=== PATIENT | female | born 1995 | race Caucasian/White ===

== ENCOUNTER → 2025-07-16 16:34 | Outpatient (REF) | payer OTHER, SELFPAY | LOC: RAD 16:34 | PROVIDERS: ATTENDING PHYSICIAN Obstetrics & Gynecology; FAMILY PHYSICIAN Family Medicine | DX: M79.661 Pain in right lower leg (principal) | CPT/HCPCS: 93971 ==

== ENCOUNTER 2025-08-25 19:31 | Observation (INO) | payer OTHER, SELFPAY ==
[2025-08-25 19:41] VITALS: BP 123/70; BMI 26.5
== END 2025-08-25 21:39 | disposition home or self-care (01) ==
LOC: LDRP 19:31
PROVIDERS: ADMITTING PHYSICIAN Obstetrics & Gynecology
DX: O32.1XX0 Maternal care for breech presentation, not applicable or unspecified (principal); Z3A.37 37 weeks gestation of pregnancy
CPT/HCPCS: 59899; G0378

== ENCOUNTER 2025-09-21 09:39 | Inpatient (IN) | payer OTHER, SELFPAY ==
[2025-09-21 09:44] VITALS: BP 123/74; BMI 26.8
[2025-09-21] MEDS: LR 1000 IV ×2 (11:30→18:39)
[2025-09-21 11:33] LABS: Hematocrit 34.8 % (37.0-47.0); Hemoglobin 12.1 g/dL (12.0-16.0); Mean Corp Hgb Conc. 34.8 g/dL (33.0-37.0); Mean Corpuscular Volume 91.8 fL (81.0-99.0); Nucleated Red Blood Cells % 0 %; Platelet Count 216 10^3/uL (130-400); Red Cell Dist. Width 13.6 % (11.5-14.5)
[2025-09-21] MEDS: PITOCIN 30 UNITS/NSS 500 ML IV (13:46)
[2025-09-21] MEDS: SUBLIMAZE 100 MCG EPIDURAL (20:55)
[2025-09-21] MEDS: FENTANYL/BUPIVACAINE 100 EPIDURAL (20:55)
[2025-09-22] MEDS: FENTANYL/BUPIVACAINE 100 EPIDURAL (04:51)
[2025-09-22] MEDS: LR 1000 IV (04:55)
[2025-09-22] MEDS: TUMS CHEWABLE TABLET 400 MG PO (05:09)
[2025-09-22] MEDS: MOTRIN 600 MG PO ×3 (11:01→23:46)
[2025-09-22] MEDS: COLACE 100 MG PO (21:02)
[2025-09-23 05:20] LABS: Hematocrit 30.7 % (37.0-47.0); Hemoglobin 10.4 g/dL (12.0-16.0)
[2025-09-23] MEDS: MOTRIN 600 MG PO ×2 (06:03→12:39)
[2025-09-23] MEDS: PRENATAL PLUS 1 TABLET PO (08:58)
[2025-09-23] MEDS: VISBIOME 1 CAP PO (08:58)
[2025-09-23] MEDS: OSCAL 500 + D 500 MG PO (08:58)
[2025-09-23] MEDS: MAGNESIUM OXIDE 400 MG PO (08:58)
[2025-09-23] MEDS: COLACE 100 MG PO ×2 (08:58→20:34)
[2025-09-24] MEDS: COLACE 100 MG PO (08:18)
[2025-09-24] MEDS: PRENATAL PLUS 1 TABLET PO (08:19)
[2025-09-24] MEDS: MAGNESIUM OXIDE 400 MG PO (08:19)
[2025-09-24] MEDS: VISBIOME 1 CAP PO (08:19)
[2025-09-24] MEDS: OSCAL 500 + D 500 MG PO (08:19)
[2025-09-24 15:09] LABS: Syphilis/T. pallidum Ab Reflex Negative (Negative)
== END 2025-09-24 12:46 | disposition home or self-care (01) | DRG 807 ==
LOC: LDRP 09:39
PROVIDERS: Student in an Organized Health Care Education/Training Program; ADMITTING PHYSICIAN Obstetrics & Gynecology; FAMILY PHYSICIAN Family Medicine
PROC: 0U7C7DJ Dilation of Cervix with Intraluminal Device, Temporary, Via Natural or Artificial Opening (ICD-10-PCS; 2025-09-21)
PROC: 3E033VJ Introduction of Other Hormone into Peripheral Vein, Percutaneous Approach (ICD-10-PCS; 2025-09-21)
PROC: 10E0XZZ Delivery of Products of Conception, External Approach (ICD-10-PCS; 2025-09-22)
PROC: 0KQM0ZZ Repair Perineum Muscle, Open Approach (ICD-10-PCS; 2025-09-22)
DX: O48.0 Post-term pregnancy (principal); Z37.0 Single live birth; Z3A.41 41 weeks gestation of pregnancy; O77.0 Labor and delivery complicated by meconium in amniotic fluid; O70.1 Second degree perineal laceration during delivery; O76 Abnormality in fetal heart rate and rhythm complicating labor and delivery
CPT/HCPCS: 36415; 76819; 85014; 85018; 85025; 86780; 86850; 86900; 86901